=== PATIENT | male | born 1950 | race Caucasian/White ===

== ENCOUNTER → 2016-12-23 | Outpatient (CLI) | payer MEDICARE, OTHER ==
--- NOTE | 2016-12-23 11:05 | XR ---
EXAMINATION TYPE: XR chest 2V DATE OF EXAM: 12/23/2016 10:59 AM COMPARISON: 11/26/2015 TECHNIQUE: PA and lateral views submitted. HISTORY: Renal cancer post nephrectomy FINDINGS: The lungs are clear and there is no pneumothorax, pleural effusion, or focal pneumonia. Surgical ch luisito in the abdomen noted. Hypertrophic change and curvature the spine noted. No overt failure. IMPRESSION: 1. No acute process.
== END | disposition home or self-care (01) ==
LOC: RADXRMAIN 10:30
PROVIDERS: ATTEND Urology
DX: C65.9 Malignant neoplasm of unspecified renal pelvis (principal)
CPT/HCPCS: 71020

== ENCOUNTER 2018-02-22 07:36 | Day surgery (SDC) | payer MEDICARE, OTHER ==
[2018-02-17 11:47] VITALS: BMI 27.5
[~2018-02-22 07:36] MED LIST: LACTATED RINGERS 1,000 ML IV SCH; LIDOCAINE 1% 20 ML VIAL (10MG/ML) FOR IV START INTRADERMA PRN; MIDAZOLAM 2 MG/2 ML VIAL IV PRN
[2018-02-22 08:22] VITALS: TEMP 98.6
[2018-02-22] MEDS ORDERED: PROPOFOL 10 MG/ML 20 ML VIAL IV ONE (09:00)
[2018-02-22] MEDS ORDERED: fentaNYL (PF) 50 MCG/ML 2 ML AMP ONE (09:00)
--- NOTE | 2018-02-22 09:06 | P.GSHP ---
History of Present Illness H&P Date: 02/22/18 Chief Complaint: History of colon cancer This a 68-year-old male who underwent a left colectomy approximate 10 years ago for colon cancer. Patient resents today for colonoscopy. Past Medical History Past Medical History: Cancer Additional Past Medical History / Comment(s): HX KIDNEY CANCER 2006. HX COLON CANCER 2008 History of Any Multi-Drug Resistant Organisms: None Reported Past Surgical History: Appendectomy, Bowel Resection Additional Past Surgical History / Comment(s): BOWEL RESECTION 2008. RT KIDNEY REMOVED 2006. COLONOSCOPY Past Anesthesia/Blood Transfusion Reactions: No Reported Reaction Smoking Status: Former smoker - Past Family History Father Family Medical History: Cancer Sister(s) Family Medical History: Cancer Medications and Allergies Home Medications Medication Instructions Recorded Confirmed Type Anti Diarheal 1 each PO DAILY PRN 02/17/18 02/22/18 History Allergies Allergy/AdvReac Type Severity Reaction Status Date / Time No Known Allergies Allergy Verified 02/22/18 08:07 Surgical - Exam Vital Signs Temp Pulse BP Pulse Ox 98.6 F 58 L 136/88 98 02/22/18 08:20 02/22/18 08:20 02/22/18 08:20 02/22/18 08:20 - General well developed, well nourished, no distress - Eyes PERRL - ENT normal pinna - Neck no masses - Respiratory normal expansion - Cardiovascular Rhythm: regular - Abdomen Abdomen: soft, non tender Assessment and Plan Assessment: History of colon cancer. We will perform colonoscopy.
--- NOTE | 2018-02-22 09:13 | P.OP ---
Date of Procedure: 02/22/18 Preoperative Diagnosis: History of colon cancer Postoperative Diagnosis: Diverticulosis No evidence of recurrent colon cancer Procedure(s) Performed: Colonoscopy Anesthesia: MAC Surgeon: Froilan Carvalho Pathology: none sent Condition: stable Disposition: PACU Description of Procedure: The patient's placed on the endoscopy table in the lateral position. He received IV sedation. Digital rectal exam was performed which revealed no abnormalities. Flexible colonoscope was then placed patient anus and passed throughout the entire colon. The ileocecal valve was visualized. The cecum, ascending and transverse colon appeared normal. In the descending colon there is mild diverticular changes. Scope was brought back and the colorectal anastomosis visualized. There is no evidence of any scarring or recurrent tumor. Scope was then brought back the rectum and this appeared normal. Scope was withdrawn for patient.
[2018-02-22 09:18] VITALS: RESP 16
[2018-02-22 09:45] VITALS: BP 129/83; PULSE 54
== END 2018-02-22 09:47 | disposition home or self-care (01) ==
LOC: ORWHC2ENDO 07:36
PROVIDERS: ATTEND Surgery
DX: K57.30 Diverticulosis of large intestine without perforation or abscess without bleeding (principal); Z85.528 Personal history of other malignant neoplasm of kidney; Z87.891 Personal history of nicotine dependence; Z85.038 Personal history of other malignant neoplasm of large intestine; Z90.5 Acquired absence of kidney; Z90.49 Acquired absence of other specified parts of digestive tract
CPT/HCPCS: 45378; J3010; J2704

== ENCOUNTER → 2020-02-21 | Outpatient (CLI) | payer MEDICARE | END | disposition home or self-care (01) | LOC: LABWHC1 08:25 | PROVIDERS: ATTEND Urology | DX: R97.20 Elevated prostate specific antigen [PSA] (principal) | CPT/HCPCS: 36415; 84153; 84154 ==

== ENCOUNTER 2021-01-05 22:50 | Emergency (ER) | payer MEDICARE ==
[2021-01-05 23:14] VITALS: TEMP 98.2
[2021-01-05] MEDS ORDERED: ACETAMINOPHEN TAB 325 MG TAB PO STA (23:49)
--- NOTE | 2021-01-06 00:11 | CT ---
EXAMINATION TYPE: CT brain brian grant con DATE OF EXAM: 01/06/2021 COMPARISON: None HISTORY: fall CT DLP: 1370.6 mGycm Automated exposure control for dose reduction was used. There is some cerebral cortical atrophy. There is no mass effect nor midline shift. There is no sign of intracranial hemorrhage. The calvarium is intact. There is some mucosal thickening in the ethmoid air cells. Cervical vertebra have normal alignment. There is degenerative disc space narrowing at C5-6 and C6-7. There is mild spurring of the endplates. Facet joints are intact. Skull base is intact. There is nor mal aeration of the mastoid sinuses. Occipital bone is intact. IMPRESSION: Spondylotic changes in the lower cervical spine. No fracture. Mild cerebral atrophy. No acute intracranial abnormality.
--- NOTE | 2021-01-06 00:20 | ED ---
General Adult HPI - General Chief complaint: Fall Stated complaint: fall, head injury Time Seen by Provider: 01/05/21 23:24 Source: patient, family Mode of arrival: ambulatory Limitations: no limitations - History of Present Illness Initial comments: 70 year-old male patient presents to the emergency department for evaluation of head injury. States that about an hour ago he was coming down some cement stairs when he missed a step and fall striking his head on the cement. Denies any neck or back pain. States he did scrape his right elbow but has no pain with movement. He denies any headache but states he is having local pain over an area of swelling on his scalp. Denies blurred or double vision. Denies nausea or vomiting. Denies any dizziness or weakness. Denies numbness, tingling, weakness of his extremities. Denies any other areas of pain or injury. Denies use of anticoagulant or antiplatelet medications. - Related Data Home Medications Medication Instructions Recorded Confirmed Anti Diarheal 1 each PO DAILY PRN 02/17/18 02/22/18 Allergies Allergy/AdvReac Type Severity Reaction Status Date / Time No Known Allergies Allergy Verified 01/05/21 23:14 Review of Systems ROS Statement: Those systems with pertinent positive or pertinent negative responses have been documented in the HPI. ROS Other: All systems not noted in ROS Statement are negative. Past Medical History Past Medical History: Cancer Additional Past Medical History / Comment(s): HX KIDNEY CANCER 2006. HX COLON CANCER 2009 History of Any Multi-Drug Resistant Organisms: None Reported Past Surgical History: Appendectomy, Bowel Resection Additional Past Surgical History / Comment(s): BOWEL RESECTION 2008. RT KIDNEY REMOVED 2006. COLONOSCOPY Past Anesthesia/Blood Transfusion Reactions: No Reported Reaction Past Psychological History: No Psychological Hx Reported Smoking Status: Former smoker Past Alcohol Use History: Occasional Past Drug Use History: None Reported - Past Family History Father Family Medical History: Cancer Sister(s) Family Medical History: Cancer General Exam Limitations: no limitations General appearance: alert, in no apparent distress Head exam: Present: other (Hematoma noted to the right posterior parietal scalp) Eye exam: Present: normal appearance, PERRL, EOMI. Absent: scleral icterus, conjunctival injection, nystagmus, periorbital swelling ENT exam: Present: normal exam, normal oropharynx, mucous membranes moist Neck exam: Present: normal inspection, full ROM, other (Nontender, no step-off, no deformity to firm midline palpation of the posterior cervical spine. Full range of motion without pain or limitation.). Absent: tenderness, meningismus, lymphadenopathy Respiratory exam: Present: normal lung sounds bilaterally. Absent: respiratory distress, wheezes, rales, rhonchi, stridor Cardiovascular Exam: Present: regular rate, normal rhythm, normal heart sounds. Absent: systolic murmur, diastolic murmur, rubs, gallop, clicks GI/Abdominal exam: Present: soft, normal bowel sounds. Absent: distended, tenderness, guarding, rebound, rigid Extremities exam: Present: full ROM, normal capillary refill, other (There is superficial abrasion noted to the right posterior forearm. No active bleeding. No bony tenderness noted. Full range of motion of the elbow is intact. Radial pulses 2+.). Absent: normal inspection, tenderness, pedal edema, joint swelling , calf tenderness Back exam: Present: normal inspection, other (Nontender, no step-off, no deformity to firm midline palpation of the thoracic and lumbar vertebrae. Full range of motion without pain or limitation.). Absent: vertebral tenderness Neurological exam: Present: alert, oriented X3, CN II-XII intact Psychiatric exam: Present: normal affect, normal mood Skin exam: Present: warm, dry, intact, normal color. Absent: rash Course Vital Signs 01/05/21 01/06/21 23:10 00:31 Temperature 98.2 F Pulse Rate 65 68 Respiratory 20 18 Rate Blood Pressure 146/85 131/79 O2 Sat by Pulse 96 97 Oximetry Medical Decision Making - Medical Decision Making 70-year-old male patient presented to the emergency department today for evaluation after a fall sustaining a head injury. Physical examination did reveal a hematoma to the right parietal posterior scalp. No laceration or bleeding. Did have a superficial abrasion to the right forearm. This exam is otherwise unremarkable. Neurologically intact with no focal deficits. CT brain C-spine were negative. He is given some Tylenol. On reevaluation is resting of the brain read. Did discuss signs and results with him. Did discuss signs or symptoms of worsening head injury. He is instructed to follow up with his primary care physician for recheck in 1-2 days. Return parameters discussed in detail. He verbalizes understanding and agrees with this plan. Case discussed my attending Dr. Guajardo. - Radiology Data Radiology results: report reviewed, image reviewed CT brain C-spine without contrast was obtained. Report by Dr. Ruiz shows spondylotic changes in the lower cervical spine. No fracture. Mild cerebral atrophy. No acute intracranial abnormality. Disposition Clinical Impression: Scalp hematoma, Fall down stairs, Abrasion of right forearm Disposition: HOME SELF-CARE Condition: Good Instructions (If sedation given, give patient instructions): Head Injury (ED), Abrasion (ED), Hematoma (ED) Additional Instructions: Tylenol for pain control. Continue to apply ice to the swelling. Follow-up with your primary care physician for recheck in 1-2 days. Return to the emergency department for any new, worsening, or concerning symptoms. Is patient prescribed a controlled substance at d/c from ED?: No Referrals: [facility],Clinic [Primary Care Provider] - 1-2 days Time of Disposition: 00:20
[2021-01-06 00:31] VITALS: BP 131/79; PULSE 68; RESP 18
== END 2021-01-06 00:31 | disposition home or self-care (01) ==
LOC: EC 22:50
DX: S00.03XA Contusion of scalp, initial encounter (principal); S50.811A Abrasion of right forearm, initial encounter; W10.9XXA Fall (on) (from) unspecified stairs and steps, initial encounter; Z85.528 Personal history of other malignant neoplasm of kidney; Z85.038 Personal history of other malignant neoplasm of large intestine; Z87.891 Personal history of nicotine dependence
CPT/HCPCS: 70450; 72125; 99284